=== PATIENT | male | born 1955 | race Caucasian/White ===

== ENCOUNTER → 2017-07-25 | Outpatient (CLI) | payer OTHER ==
[2017-07-25 17:45] LABS: BLOOD UREA NITROGEN 20 mg/dl (7-18); CARBON DIOXIDE 30 mmol/L (21-32); CREATININE 1.41 mg/dl (0.60-1.40); GLUCOSE 89 mg/dl (70-99); POTASSIUM 3.8 mmol/L (3.5-5.1); SODIUM 138 mmol/L (136-145)
== END | disposition home or self-care (01) ==
LOC: C.LABBC 15:30
PROVIDERS: ATTEND Family Medicine Adult Medicine
DX: I10 Essential (primary) hypertension (principal)

== ENCOUNTER 2022-04-20 09:23 | Observation (INO) ==
--- NOTE | 2022-04-15 15:28 | Anesthesiology Consultation ---
Date of Service April 15, 2022 Assessment & Plan (1) Encounter for pre-operative examination: Chart Review Chart Review: Acceptable Risk for Surgery and Patient NOT seen in Pre Admission Testing pt seen by urology 04/15/22 due to increased creatinine and urinary retention; per urology, bladder outlet obstruction likely causing hydronephrosis and subsequent renal failure will check CBC (ordered by surgeon but not completed) and CMP (for repeat creat) AM of surgery. Creat 04/02/22: 1.80 (eGFR 38.1) COVID screening: Per PAT nursing assessment on 04/15/22, No known COVID-19 positive contacts or current COVID-19 related symptoms. Travel screen negative. Patient vaccinated for Covid. At surgeon discretion if preop Covid testing being done. History Surgery Operation Date: 04/20/22 12:10 Proposed Procedures p Transurethral Resection of the Prostate, Bilateral Retrograde Pyelogram - Enmanuel Pedro MD Height/Weight Height: 5 ft 10 in Weight: 83.007 kg Allergies Allergy/AdvReac Type Severity Reaction Status Date / Time doxycycline Allergy Mild rash ? Verified 04/15/22 14:37 Penicillins Allergy Mild Rash Verified 04/15/22 14:37 Medications Home Medications Medication Instructions Recorded Confirmed Last Taken hydrochlorothiazide 25 mg tablet 25 mg PO QAM #90 tabs 04/10/21 04/15/22 Unknown sildenafil 50 mg tablet 50 mg PO DAILY PRN BEFORE SEXUAL 04/02/22 04/15/22 Unknown ACTIVITY lisinopril 40 mg tablet 40 mg PO QAM 04/15/22 04/15/22 Unknown Past Medical History Medical History (Updated 04/15/22 @ 15:52 by Arianna Maldonado PA-C) Acquired sensorineural hearing loss Arthritis BPH (benign prostatic hyperplasia) current bladder outlet obstruction causing hydronephrosis and renal failure Hypertension controlled with medication Past Family History Family History Father Skin cancer Prostate cancer Other No family history of adverse response to anesthesia Denies family history of Ovarian cancer Diabetes Myocardial infarction Breast cancer Lung cancer Colorectal cancer Stroke Past Surgical History Surgical History History of colonoscopy 10/31 repeat 3 yrs Social History Smoking Status: Never smoker Hx Alcohol Use: Yes Alcohol type: beer alcohol intake frequency: a few times a month Hx Substance Use: No substance use type: does not use Lab Results Anesthesia Preop Results Results Anesthesia Widget: Na 142 mmol/L (136-145) 04/02/22 K 4.2 mmol/L (3.5-5.1) 04/02/22 Cl 104 mmol/L (98-107) 04/02/22 CO2 32 mmol/L (21-32) 04/02/22 BUN 18 mg/dl (6-23) 04/02/22 Creat 1.80 mg/dl (0.6-1.4) H 04/02/22 Glucose Level 87 mg/dl (70-99(Fasting)) 04/02/22 HA1c 5.6 % (4.5-5.6) 04/02/22 Testing Electrocardiogram Date: 04/15/22 Findings: + NSR @ (70bpm) LAFB. LVH with QRS widening Chest X-Ray Date: 04/15/22 Findings: + NAD -lungs hyperinflated -NS interstitial thicking likely chronic -indeterminate 10mm nodular density projecting over RUL; recommend correlation with chest CT to exclude underlying pulm lesion -additional 5mm nodular density projecting over RLL (may represent nipple shadow); recommend correlation with chest CT to exclude underlying pulm lesion Other Testing 04/13/22 CT abd/pelvis: 1. Marked bladder distention with evidence of chronic bladder outlet obstruction. 2. Severe left hydroureteronephrosis, with the ureter dilated to the level of the markedly distended bladder. No obstructing stone or lesion is identified. 3. Severe and asymmetric cortical atrophy of the left kidney as compared to the right. Hydronephrosis is almost certainly chronic. 4. R kidney is normal in size and without hydronephrosis. 5. Mild NS L sided perinephric stranding. This may be related to hydronephrosis. 6. Colonic diverticulosis without CT evidence of acute diverticulitis.
[~2022-04-20 09:23] MED LIST: CIPROFLOXACIN / D5W 400 MG/200 ML BAG IV SCH; LR 15ML/HR IV SCH
[2022-04-20 09:54] LABS: Basophils # (auto) 0.06 K/uL (0-0.2); Basophils % (auto) 1.1 %; Eosinophils # (auto) 0.26 K/uL (0-0.50); Eosinophils % (auto) 4.9 %; Hematocrit (blood only) 45.3 % (42.0-52.0); Hemoglobin 15.5 g/dl (14.0-18.0); Immature Granulocytes # (auto) 0.02 K/uL (0.01-0.20); Immature Granulocytes % (auto) 0.4 %; Lymphocytes # (auto) 1.27 K/uL (1.2-3.4); Lymphocytes % (auto) 24.1 %; Mean Corpuscular Hgb Conc 34.2 g/dL (32.0-36.0); Mean Corpuscular Volume 99.3 fL (80.0-100.0); Mean Platelet Volume 9.9 fL (9.4-12.4); Monocytes # (auto) 0.73 K/uL (0.11-0.59); Monocytes % (auto) 13.8 %; Neutrophils # (auto) 2.94 K/uL (1.40-6.50); Neutrophils % (auto) 55.7 %; Platelet Count 232 K/uL (130-400); RDW Coefficient of Variation 12.9 % (11.5-14.5); Red Blood Count 4.56 M/uL (4.70-6.10); White Blood Count 5.28 K/ul (4.8-10.8)
[2022-04-20] MEDS ORDERED: MIDAZOLAM HCL 1 MG/ML 2ML VIAL ONE (10:02)
[2022-04-20] MEDS ORDERED: fentaNYL citrate 100 MCG/2 ML VIAL ONE (10:02)
[2022-04-20 10:06] LABS: BUN Creatinine Ratio 12.3 (10-20); Calcium 10.3 mg/dl (8.5-10.1); Creatinine Clr Calc Pharmacy 43.3 ml/min; Est GFR (Non-African American) 40.5 ml/min; Potassium 4.2 mmol/L (3.5-5.1)
[2022-04-20] MEDS ORDERED: ePHEDrine sulfate 50 MG/ML AMP IV PRN (10:25)
[2022-04-20] MEDS ORDERED: ATROPINE SULFATE 0.1 MG/ML 10ML SYR IV PRN (10:25)
[2022-04-20] MEDS ORDERED: HYDROmorphone INJ 2 MG/ML SYR/VIAL IV PRN (10:25)
[2022-04-20] MEDS ORDERED: ONDANSETRON INJ 2 MG/ML 2 ML VIAL IV PRN (10:25)
[2022-04-20] MEDS ORDERED: fentaNYL citrate 100 MCG/2 ML VIAL IV PRN (10:25)
--- NOTE | 2022-04-20 10:26 | History & Physical Bridge Note ---
Date of Service April 20, 2022 History & Physical Bridge Note I have examined the patient, reviewed the History & Physical and in the interval since the performance of the History & Physical I have noted the following changes of clinical significance: no changes noted
[2022-04-20] MEDS ORDERED: DEXAMETHASONE SOD INJ 4 MG/ML VIAL ONE (11:22)
[2022-04-20] MEDS ORDERED: PROPOFOL IV EMULSION 10 MG/ML 20 ML VIAL IV ONE (11:22)
[2022-04-20] MEDS ORDERED: ONDANSETRON INJ 2 MG/ML 2 ML VIAL ONE (11:22)
[2022-04-20] MEDS ORDERED: LIDOCAINE 2% 2 ML VIAL/AMP(20MG/ML) INFIL ONE (11:22)
[2022-04-20] MEDS ORDERED: DIATRIZOATE MEGLUMINE 30% 100ML VIAL INSTIL PRN (11:56)
--- NOTE | 2022-04-20 12:26 | Operative Report ---
PG Post Operative Report Pre & Post Diagnosis Operation Date: 04/20/22 10:50 Pre-Op Diagnosis: Urinary Retention, renal failure, hydronephrosis Post-Op Diagnosis: Urinary Retention, renal failure, hydronephrosis I identified the patient and participated in the time-out.: Yes Procedure Operation Date: 04/20/22 10:50 Actual Procedures p Transurethral Resection of the Prostate, Attempted Bilateral Retrograde Pyelogram(Not Applicable) - Enmanuel Pedro MD Surgeon Enmanuel Pedro MD Snapper On none Estimated Blood Loss 0 Findings Consistent with Post-Op Diagnosis Specimens none Description of Procedure The patient was identified in the preoperative holding area, appropriate informed consents were reviewed and completed and the patient was transferred to the operative suite. Upon arrival, appropriate antibiotics and anesthesia were administered and the patient was placed in dorsal lithotomy position and prepped and draped in sterile fashion. To begin the case I passed a 22 [place]ian cystoscope with 30 degree lens. Inspection revealed a healthy-appearing urethra. A moderate size prostate with a very high bladder neck and some intravesical intrusion of the prostate. Inspection of the bladder revealed a massively distended bladder with a severe trabeculation throughout. The ureteral orifices were identified but were in an odd angulation to the bladder neck given the significant trabeculation. Utilizing a cone-tip catheter I was able to intubate the distal left ureter and begin to perform a retrograde pyelogram but I could not adequately advance contrast up the ureter. I elected to abort this procedure on the left side. I attempted to do the same on the right but again was unsuccessful. Following that times a retrograde pyelogram I turned my attention back to the prostate. Utilizing a button electrode I was able to incise the bladder neck at 5 and 7:00 and was able to begin resecting the intravesical component of the prostate. I then continued circumferentially around the bladder neck as there was substantial intrusion from all aspects. I worked my way through the left lateral lobe followed by the right lateral lobe and ultimately this open the prostate widely. Passage of the scope through the prostate was much easier after completion of the resection. Hemostasis was excellent. His bladder was left full and the scope withdrawn. I did place a Sims catheter without difficulty and concluded the case. He will be observed overnight with repeat renal check in the morningno complications during the surgery. I attest to the content of the Intraoperative Record and any orders documented therein. Any exceptions are noted below.
--- NOTE | 2022-04-20 13:33 | Anesthesiology Progress Note ---
Date of Service April 20, 2022 Anesthesia Post Procedure Vital Signs Vital Signs: Temp Pulse Resp BP Pulse Ox O2 Del Method O2 Flow Rate 04/20/22 12:55 64 20 165/86 H 100 Room Air 2 04/20/22 12:45 62 14 170/102 H 100 Room Air 2 04/20/22 13:05 36.5 C 64 22 168/101 H 99 Room Air 04/20/22 12:35 65 16 178/109 H 100 Oxymask 2 04/20/22 12:26 36.7 C 64 16 172/101 H 95 Oxymask 2 04/20/22 09:49 36.6 C 73 22 166/95 H 99 Room Air Transfer of Care Handoff Completed per policy Notes Mental Status: alert / awake / arousable and participated in evaluation Patient Amnestic to Procedure: Yes Nausea / Vomiting: adequately controlled Pain: adequately controlled Airway Patency, RR, SpO2: stable & adequate BP & HR: stable & adequate Hydration State: stable & adequate Anesthetic Complications: no major complications apparent and Pt Satisfied with anesthetic care
--- NOTE | 2022-04-20 14:09 | Fluoroscopy Report ---
FL retrograde includes kub CLINICAL HISTORY: W/TURPstatus post biopsy of the prostate COMPARISON STUDY: CT 04/13/2022 FLUOROSCOPY TIME: 7.2 seconds FLUOROSCOPY IMAGES: 1 EXPOSURE DOSE: 1.47 mGy FINDINGS: Single spot fluoroscopic image of the pelvis demonstrates no opaque foreign body or other a cute abnormality identified by fluoroscopy. IMPRESSION: Fluoroscopic assistance as above. ACT 112: Negative or not required by law. Electronically signed by: Ayan Sandra M.D. 04/20/2022 2:08 PM
[2022-04-20] MEDS ORDERED: ACETAMINOPHEN 325 MG TAB PO PRN (16:42)
[2022-04-20] MEDS: SODIUM CHLORIDE 0.9% 1000ML 1,000 ML IV SCH (17:01)
[2022-04-20] MEDS: CIPROFLOXACIN / D5W 400 MG/200 ML BAG IV SCH (22:36)
[2022-04-21] MEDS: SODIUM CHLORIDE 0.9% 1000ML 1,000 ML IV SCH ×2 (02:44→10:51)
--- NOTE | 2022-04-21 08:06 | Urology Progress Note ---
Date of Service April 21, 2022 Assessment & Plan (1) Elevated creatine kinase: (2) Urinary retention due to benign prostatic hyperplasia: Plan Postop day #1 status post TURP Doing extremely well Voiding trial this morning Very anxious see his labs Follow-up in 1 to 2 weeks with labs as an outpatient Admission and Anticipated Discharge Date Admission Date: April 20, 2022 Subjective No major issues overnight Excellent urine output6+ liters Labs still pending this morning Feels well Physical Exam Physical Exam: Relatively clear urine in the tube Results & Data ([facility]) Vital Signs (Past 12 Hours) Vital Signs Temp Pulse Resp BP BP Pulse Ox O2 Del Method 04/21/22 07:58 36.7 C 71 16 142/84 H 98 Room Air 04/21/22 03:44 36.5 C 70 18 135/79 98 Room Air 04/20/22 22:36 36.7 C 89 18 167/78 H 95 Room Air 04/20/22 20:08 36.4 C L 83 16 158/89 H 96 Room Air PG Care Time/CCT Total # of Minutes Spent Total Time Spent with Patient: Total time spent is greater than 50% in coordination of care (as documented) at patient's floor/unit and/or counseling patient: Coding Level of Care Code None Diagnoses Elevated creatine kinase R74.8 Urinary retention due to benign prostatic hyperplasia N40.1; R33.8
[2022-04-21 08:41] LABS: BUN Creatinine Ratio 13.7 (10-20); Creatinine Clr Calc Pharmacy 44.1 ml/min; Est GFR (Non-African American) 41.4 ml/min
[2022-04-21] MEDS ORDERED: lisinopril 40 MG TAB PO SCH (09:00)
[2022-04-21] MEDS: CIPROFLOXACIN / D5W 400 MG/200 ML BAG IV SCH (10:51)
--- NOTE | 2022-04-21 20:12 | Discharge Summary ---
Date of Service April 21, 2022 Admission HPI Per Admitting Provider 66-year-old male with a history of urinary retention, hydronephrosis, and elevated creatinine who presents for TURP procedure Admission Exam Per Admitting Provider Constitutional well developed and well nourished Neck neck nontender Respiratory normal respiratory effort; no respiratory distress and does not use accessory muscles Cardiovascular Rate/Rhythm: regular rate Vessels: radial pulses present Extremities: no edema Gastrointestinal (Abdomen) Inspection/Auscultation: abdomen normal to inspection Percussion/Palpation: abdomen soft; abdomen nontender and no guarding Musculoskeletal Head/Neck/Chest: normocephalic and head atraumatic Extremities: extremities normal to inspection Skin no rashes and no lesions Trauma: no evidence of skin trauma Neurologic awake; not obtunded Speech / Cognition: normal speech Motor/Sensory: no tremor Psychiatric Orientation: alert and oriented x 3 Genitourinary no CVA tenderness Lymphatic no lymphadenopathy Principal Diagnosis Urinary Retention, renal failure, hydronephrosis Discharge Exam Constitutional no acute distress Respiratory no respiratory distress and no labored breathing Neurologic moves all extremities and awake Psychiatric Orientation: alert and oriented x 3 Discharge Data Allergies Allergy/AdvReac Type Severity Reaction Status Date / Time doxycycline Allergy Mild rash ? Verified 04/20/22 09:42 Penicillins Allergy Mild Rash Verified 04/20/22 09:42 Procedures Performed Operation Date: 04/20/22 10:50 Actual Procedures p Transurethral Resection of the Prostate, Attempted Bilateral Retrograde Pyelogram(Not Applicable) - Enmanuel Pedro MD Ordered Studies 04/20/22 10:50 FL retrograde includes kub Routine Hospital Course (1) Elevated creatine kinase: (2) Urinary retention due to benign prostatic hyperplasia: Plan 66-year-old male admitted status post TURP. Patient tolerated procedure well. No acute issues postoperatively. Appropriate labs. Remained afebrile and hemodynamically stable. Patient passed a voiding trial on postop day #1. He had minimal pain. Tolerated diet. Ambulated without issue. He was subsequently discharged home on postop day #1 in stable condition. Discharge instructions were reviewed, all questions were answered. Total Time Total Time Spent Total Time Spent (In Minutes): 15 Discharge Plan Discharge Items Patient Disposition: Home - Self-Care Reason For Visit: RENAL FAILURE, HYDRONEPHROSIS Discharge Diagnosis: Urinary Retention, renal failure, hydronephrosis Activity: Per Instructions section Lifting: No more than 25 pounds Bathing: No limitations Sexual Activity: When tolerated Exercise/Sports: Gradually increase as tolerated Non-emergency contact: Surgeon and Urologist Call non-emergency contact if: you have any medication questions, your pain is not controlled, your pain is unusual for you, your pain is concerning for you and you have a fever Follow-up/Referrals: Enmanuel Pedro MD [Physician] - 05/05/22 9:00 am Chaz Tovar DO [Primary Care Provider] - Diet: Regular Addtl Attending Provider Instructions: Please take all medications as prescribed and keep all follow-ups as scheduled. Please call our office at [phone] with any questions, concerns or need to reschedule appointments for any reason. We are happy to assist you. Tips for your recovery at home: Dont be alarmed by brownish or reddish blood or clots in your urine. This is a result of the procedure. This may occur off and on for weeks to months after the procedure but should continue to improve. Drink plenty of fluids during the day (enough to keep your urine very light colored). This will help keep a healthy flow of urine. Do not lift >25 lbs until your followup Avoid constipation. Please use a stool softener (Colace) for the first two weeks after your procedure Be sure to finish the antibiotics as prescribed. When to call [facility] at [phone]: Your urine contains heavy blood clots or you are unable to urinate You are constantly leaking urine Fever of 101F or higher, chills, nausea, or vomiting Your pain is not relieved with medication Pending Studies at Discharge: No Stand-Alone Forms: [facility] [place], Smoking Cessation Medications and DC Order Prescriptions: New ciprofloxacin HCl [Cipro] 250 mg tablet 250 mg PO BID 3 Days Qty: 6 0RF Continued sildenafil 50 mg tablet 50 mg PO DAILY PRN (Reason: BEFORE SEXUAL ACTIVITY) hydrochlorothiazide 25 mg tablet 25 mg PO QAM Qty: 90 3RF lisinopril 40 mg tablet 40 mg PO QAM Discharge Orders: Discharge Order (Routine); Ordered 04/21/22 Ordered By: Anya Olvera/Other Patient Handouts: TURP Home Recovery Admission Data Admit Date/Time: 04/20/22 12:33 Attending Provider: Enmanuel Pedro Admit Provider: Enmanuel Pedro Primary Care Provider: Chaz Tovar Other Interventions: Discharge Summary Assessment (RN) Last Done: 04/21/22 14:58 Coding Level of Care Code HOSP INP/OBS DISCH 30 MIN/LESS Diagnoses Elevated creatine kinase R74.8 Urinary retention due to benign prostatic hyperplasia N40.1; R33.8
== END 2022-04-21 16:08 | disposition home or self-care (01) ==
LOC: ASU 09:23 → PACUINP 09:23 → 3W 15:43